=== PATIENT | male | born 1965 | race Caucasian/White ===

== ENCOUNTER 2021-01-23 06:23 | Emergency (ER) | payer OTHER ==
[~2021-01-23 06:23] MED LIST: AUGMENTIN 875-1 EACH PO; NORCO 5-325 TA1 EACH PO
[2021-01-23] MEDS ORDERED: MEDROL DOSEPAK 24 MG PO (08:12)
[2021-01-23] MEDS ORDERED: CYCLOBENZAPRINE10 MG PO (08:12)
== END 2021-01-23 08:16 | disposition home or self-care (01) ==
LOC: ER1 06:23
DX: M54.6 Pain in thoracic spine (principal)
CPT/HCPCS: 96372; 99283; J1100; J1885

== ENCOUNTER 2021-01-30 05:31 | Emergency (ER) | payer OTHER ==
[~2021-01-30] VITALS: Ht 162.6 cm; Wt 85.0 kg
[~2021-01-30 05:31] MED LIST changes: +CYCLOBENZAPRINE10 MG PO; +MEDROL DOSEPAK 24 MG PO
[2021-01-30 06:26] LABS: HEMOGLOBIN 15.6 gm/dl (14.0-17.5); RED BLOOD COUNT 5.08 M/UL (4.20-5.50); WHITE BLOOD COUNT 16.8 K/UL (4.5-11.0)
[2021-01-30] MEDS ORDERED: METHYLPREDNISOLO4 M1 PO (13:50)
[2021-01-30] MEDS ORDERED: ROPINIROLE HCL0.5 MG PO (13:51)
[2021-01-30] MEDS ORDERED: DICLOFENAC SODI75 MG PO (13:51)
== END 2021-01-30 14:21 | disposition expired ==
LOC: ER1 05:31 → CDU 11:40 → ER1 11:40
PROVIDERS: Family Medicine
DX: A41.89 Other specified sepsis (principal); U07.1 COVID-19; R65.21 Severe sepsis with septic shock; J96.01 Acute respiratory failure with hypoxia; J12.82 Pneumonia due to coronavirus disease 2019; N17.9 Acute kidney failure, unspecified; E66.9 Obesity, unspecified; E87.2 Acidosis
CPT/HCPCS: 31500; 36600; 71045; 80053; 81001; 82436; 82550; 82553; 82570; 82803; 82962; 83605; 83880; 84133; 84156; 84300; 84484; 85025; 85379; 87040; 87086; 92950; 93005; 94002; 99284; J0171; J0456; J0461; J1100; J1265; J1940; J2250; J2543; J2704; J2930; J7030; Q0249; U0002